=== PATIENT | male | born 1990 | race Caucasian/White ===

== ENCOUNTER → 2019-02-13 | Outpatient (CLI) | payer BC | LOC: GMAH 14:29 | PROVIDERS: ATTEND Family Medicine | DX: I10 Essential (primary) hypertension (principal) ==

== ENCOUNTER → 2019-02-14 | Outpatient (CLI) | payer BC, OTHER ==
--- NOTE | 2019-02-14 13:22 | CT ---
EXAM DESCRIPTION: Head CLINICAL HISTORY: DIZZINESS COMPARISON: None available TECHNIQUE: Noncontrast head CT was performed with routine protocol. FINDINGS: Normal gilliam-white matter differentiation. Ventricles and sulci are normal for age. No high density hemorrhage, focal edema or shift of the midline. No sulcal effacement. Normal orbital contents. Basilar cisterns appear clear. Intact calvarium with no fracture or lytic lesion. Normal aeration of tympanic cavities and mastoid air cells. No fluid levels in the paranasal sinuses. Skull base appears intact. Symmetrical internal auditory canals. IMPRESSION: No acute intracranial pathologic process. This exam was performed according to our departmental dose-optimization program, which includes automated exposure control, adjustment of the mA and/or kV according to patient size and/or use of iterative reconstruction technique. Total DLP equals 752.48 mGycm. Electronically signed by: Barney Crespo MD 02/14/2019 1:19 PM CDT
== END ==
LOC: CT 12:22
PROVIDERS: ATTEND Family Medicine
DX: R42 Dizziness and giddiness (principal)